=== PATIENT | male | born 1970 | race Caucasian/White ===

== ENCOUNTER 2021-01-08 14:13 | Outpatient (CLI) | payer OTHER ==
[2021-01-08 15:21] LABS: BASOPHILS % (AUTO) 1 % (0-1); EOSINOPHILS % (AUTO) 3 % (1-7); LYMPHOCYTES % (AUTO) 21 % (22-44); MEAN CORPUSCULAR HEMOGLOBIN 30.4 pg (27.5-34.5); MEAN CORPUSCULAR HGB CONC 33.9 g/dL (33.2-36.2); MEAN PLATELET VOLUME 8.5 fL (7.4-10.4); MONOCYTES % (AUTO) 9 % (2-9); NEUTROPHILS % (AUTO) 66 % (42-75); PLATELET COUNT 232 x10^3/uL (130-400); RED BLOOD COUNT 5.22 x10^6/uL (4.38-5.82)
[2021-01-08 15:25] LABS: ANION GAP 0 mmol/L (5-15); CALCIUM 9.2 mg/dL (8.5-10.1); CHLORIDE 112 mmol/L (98-107); CREATININE 1.26 mg/dL (0.7-1.3)
[2021-01-08 15:36] LABS: MD NO
[2021-01-08 15:50] LABS: INTERNATIONAL NORMALIZED RATIO 1.03 (0.93-1.1)
== END 2021-01-08 23:59 | disposition home or self-care (01) ==
LOC: STAR 14:13
PROVIDERS: ATTEND Obstetrics & Gynecology
DX: Z01.818 Encounter for other preprocedural examination (principal)
CPT/HCPCS: 36415; 80048; 85025; 85610; 85730

== ENCOUNTER 2021-01-14 13:24 | Day surgery (SDC) | payer OTHER ==
[~2021-01-14] VITALS: Ht 185.4 cm; Wt 91.6 kg
[2021-01-14 13:48] VITALS: BP 134/84
[2021-01-14] MEDS ORDERED: NO HOME MEDS PER PT (13:59)
[2021-01-14] MEDS ORDERED: CHLORHEXIDINE 15 ML UDC PO ONE (14:00)
[2021-01-14] MEDS ORDERED: LACTATED RINGERS 1,000 ML IV SCH (14:00)
[2021-01-14 14:17] LABS: ANION GAP 6 mmol/L (5-15); CALCIUM 8.4 mg/dL (8.5-10.1); CHLORIDE 109 mmol/L (98-107)
[2021-01-14 14:18] LABS: CREATININE 1.13 mg/dL (0.7-1.3)
[2021-01-14] MEDS ORDERED: morphine SULFATE 10 MG/ML, 1ML IV PRN (14:30)
[2021-01-14] MEDS ORDERED: METOCLOPRAMIDE 5 MG/ML, 2ML IV PRN (14:30)
[2021-01-14] MEDS ORDERED: MIDAZOLAM 1 MG/ML, 2ML IV PRN (14:30)
[2021-01-14] MEDS ORDERED: HYDROmorphone 2 MG/ML, 1ML IVPush PRN (14:30)
[2021-01-14] MEDS ORDERED: PROMETHAZINE 25 MG/ML, 1ML IV PRN (14:30)
[2021-01-14] MEDS ORDERED: ALBUTEROL SULFATE 2.5 MG/3 ML NPPB PRN (14:30)
[2021-01-14] MEDS ORDERED: LABETALOL 5MG/ML, 20ML IV PRN (14:30)
[2021-01-14] MEDS ORDERED: OXYcodone 5 MG/5 ML ORAL.SOL UDC PO PRN (14:30)
[2021-01-14] MEDS ORDERED: FENTANYL PF 100 MCG/2ML IV PRN (14:30)
[2021-01-14] MEDS ORDERED: hydrALAzine 20 MG/ML, 1ML IV PRN (14:30)
[2021-01-14] MEDS ORDERED: ONDANSETRON 2MG/ML, 2ML IVPush PRN (14:30)
[2021-01-14] MEDS ORDERED: MEPERIDINE/PF 25MG/0.5ML IVPush PRN (14:30)
[2021-01-14] MEDS ORDERED: FENTANYL PF 100 MCG/2ML ONE ×2 (15:34→16:53)
[2021-01-14] MEDS ORDERED: LIDOCAINE-MPF 2% ,5ML ONE (15:35)
[2021-01-14] MEDS ORDERED: PROPOFOL 10 MG/ML, 20ML ONE (15:35)
[2021-01-14] MEDS ORDERED: CEFAZOLIN 1,000 MG ONE (15:35)
[2021-01-14] MEDS ORDERED: WATER-INJECTION,STERILE 10 ML IV ONE (15:35)
[2021-01-14] MEDS ORDERED: ONDANSETRON 2MG/ML, 2ML ONE (15:35)
[2021-01-14] MEDS ORDERED: DEXAMETHASONE 4 MG/ML, 1ML ONE (15:35)
[2021-01-14] MEDS ORDERED: BUPIVACAINE/PF 0.5% ONE (15:50)
[2021-01-14] MEDS ORDERED: OXYcodone 5 MG/5 ML ORAL.SOL UDC ONE (16:53)
== END 2021-01-14 19:20 | disposition home or self-care (01) ==
LOC: OR 13:24
PROVIDERS: ATTEND Urology
DX: N43.3 Hydrocele, unspecified (principal); N50.3 Cyst of epididymis; F12.90 Cannabis use, unspecified, uncomplicated; Z20.822 Contact with and (suspected) exposure to COVID-19; Z79.899 Other long term (current) drug therapy; Z87.891 Personal history of nicotine dependence; Z88.0 Allergy status to penicillin
CPT/HCPCS: 36415; 55040; 80048; 88302; J0690; J1100; J2405; J2704; J3010; J7120; U0003